=== PATIENT | male | born 1960 | race Caucasian/White ===

== ENCOUNTER 2017-01-11 08:30 | Emergency (ER) | payer BC ==
--- NOTE | 2017-01-11 09:26 | RAD ---
HISTORY: Left knee pain COMPARISONS: None VIEWS: 4, Frontal, lateral, axial, and oblique views of the left knee FINDINGS: BONE DENSITY: Normal. BONES: There is no displaced fracture. 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 There is a small suprapatellar joint effusion. ALIGNMENT: There is no dislocation. SOFT TISSUES: Unremarkable. OTHER FINDINGS: None. IMPRESSION: OSTEOARTHRITIS. SMALL EFFUSION. NO ACUTE OSSEOUS INJURY. IF SYMPTOMS PERSIST, RECOMMEND REPEAT IMAGING.
--- NOTE | 2017-01-11 09:44 | UC ---
Leslie, DoctorSuzan, scribed for Leonor Chiu MD on 01/11/17 at 0905 . Knee Pain HPI - HPI Summary HPI Summary: 56 year old male arrived to [facility] c/o left knee pain beginning yesterday at 1730. His pain is exacerbated with weight bearing and full extension, and he describes his pain as "lightning" that shoots across the top of the knee. He reports that he felt "something strange" behind his left knee after rock climbing yesterday morning, but did not notice any other symptoms until 1730 after his left knee "gave out" during a fitness class. He describes falling twice within a few minutes, and was unable to bear weight on the left side following the second fall. His symptoms were resolved slightly after application of ice (last night) and Aleve (this morning); he is now able to walk normally. He has a PMHx of Mann's Cyst and arthritis (dx two years ago) in the left knee. He reports that his arthritis typically "flares up in the cold ," but his pain today is significantly increased from baseline. He also has PMHx of HTN for which he takes medication; he regularly sees Dr. Cuadra (PCP). - History of Current Complaint Chief Complaint: UCLowerExtremity Stated Complaint: KNEE INJURY Hx Obtained From: Patient Onset/Duration: Gradual Onset Severity Initially: Moderate Severity Currently: Moderate Pain Intensity: 1 - 1/10 now, 9/10 when standing Pain Scale Used: 0-10 Numeric Character: Aching Aggravating Factor(s): Movement, Weight Bearing, Prolonged Standing Alleviating Factor(s): Cold - Ice, OTC Meds - Aleve Associated Signs And Symptoms: Positive: Swelling Able to Bear Weight: Yes - now able to bear weight, was not able to bear weight last night - Risk Factors Septic Arthritis Risk Factor: Negative Gout Risk Factor: Negative - Allergies/Home Medications Allergies/Adverse Reactions: Allergies Allergy/AdvReac Type Severity Reaction Status Date / Time Sulfa Drugs Allergy Mild Rash Verified 06/19/16 06:59 Prednisone Allergy Agitation Verified 01/11/17 08:38 Home Medications: Home Medications Cholesterol Med 1 tab PO DAILY 01/11/17 [History] Vitamin B Complex CAP* [B Complex CAP*] 1 01/11/17 [History] PMH/Surg Hx/FS Hx/Imm Hx Endocrine History Of: Denies: Diabetes, Thyroid Disease Cardiovascular History Of: Reports: Hypertension - on meds Denies: Cardiac Disorders, Pacemaker/ICD Respiratory History Of: Denies: COPD, Asthma GI/ History Of: Denies: Ulcer - Surgical History Surgical History: Yes Surgery Procedure, Year, and Place: hernia - Family History Known Family History: Positive: Other - no FHx of malignant hyperthermia, adverse reaction to anesthesia - Social History Occupation: Employed Full-time Alcohol Use: Daily Alcohol Amount: 4 mixers/day Substance Use Type: Marijuana Substance Use Comment - Amount & Last Used: daily Smoking Status (MU): Never Smoked Tobacco Review of Systems Constitutional: Other - no fever Musculoskeletal: Arthralgia - left knee, Edema - left knee, Other: - point tenderness medial supraptellar All Other Systems Reviewed And Are Negative: Yes Physical Exam Triage Information Reviewed: Yes Appearance: Well-Appearing, Well-Nourished, Pain Distress Vital Signs: Initial Vital Signs Temp 98.0 F 01/11/17 08:40 Pulse 82 01/11/17 08:40 Resp 18 01/11/17 08:40 BP 172/102 01/11/17 08:40 Pulse Ox 98 01/11/17 08:40 Elevated BP noted, decreased on repeat Vital Signs Reviewed: Yes Eyes: Positive: Conjunctiva Clear ENT: Positive: Normal ENT inspection Neck: Positive: Supple Respiratory: Positive: Lungs clear, Normal breath sounds, No respiratory distress Cardiovascular: Positive: RRR, No Murmur, Pulses Normal, Brisk Capillary Refill Abdomen Description: Positive: Nontender, Soft. Negative: Splenomegaly Musculoskeletal: Positive: Edema @ - left knee, Other: - Maximum tenderness superior medially (left knee). Ligaments stable with stress. No Mann's cyst palpated. Medial left ankle soreness, no bony tenderness, no swelling of ankle. Neurological: Positive: Alert, Muscle Tone Normal Psychological Exam: Normal Skin Exam: Normal Diagnostics - Radiology Knee X-Ray Radiology Interpretation Completed By: Radiologist - IMPRESSION: OSTEOARTHRITIS. SMALL EFFUSION. NO ACUTE OSSEOUS INJURY. IF SYMPTOMS PERSIST, RECOMMEND REPEAT IMAGING. Re-Evaluation - Re-Evaluation First Eval Re-Evaluation Time: 09:33 Change: Unchanged Comment: 09:33 - Discussed X-Ray results with pt. Knee Pain Course/Dx - Course Course Of Treatment: Pt advised about elevated blood pressure and to have definite follow up in 2 days. Advised non weight bearing and to use crutches and knee immobilizer until seen by orthopedics. - Differential Dx/Diagnosis Differential Diagnosis/HQI/PQRI: Fracture (Closed), Internal Derangement Of Knee , Sprain, Strain Provider Diagnoses: 1) Blood pressure under poor control. 2) Left knee effusion and pain Discharge - Discharge Plan Condition: Stable Disposition: HOME Patient Education Materials: Knee Sprain (ED), Crutch Instructions (ED) Forms: *Gen. Provider Communication, *Work Release Referrals: Vick Tena MD [Medical Doctor] - 3 Days Edgardo Cuadra MD [Primary Care Provider] - 2 Days Additional Instructions: Please follow up with Dr. Cuadra about your elevated blood pressure in 2 days. Follow up with orthopedics in 3-5 days. Use the knee immobilizer and crutches until seen by orthopedics. Return to urgent care if any new or worsening symptoms. The documentation as recorded by the Doctor junior Tahera accurately reflects the service I personally performed and the decisions made by , Leonor Chiu MD.
[2017-01-11 09:57] VITALS: BP 163/95
== END 2017-01-11 09:58 | disposition home or self-care (01) ==
LOC: UCEAST 08:30
DX: M25.562 Pain in left knee (principal); M25.462 Effusion, left knee; M17.12 Unilateral primary osteoarthritis, left knee; I10 Essential (primary) hypertension; Z88.2 Allergy status to sulfonamides; Z88.8 Allergy status to other drugs, medicaments and biological substances; F12.90 Cannabis use, unspecified, uncomplicated
CPT/HCPCS: 99213; G0463

== ENCOUNTER 2017-03-13 08:11 | Emergency (ER) | payer BC ==
[2017-03-13 09:12] VITALS: BP 130/90
--- NOTE | 2017-03-13 13:58 | UC ---
Gus eNlson Claudia, scribed for Ana Ballard MD on 03/13/17 at 0854 . General HPI - HPI Summary HPI Summary: 56 year old male presents to the [facility] with cough and chest pain due to the cough. Pt states that the Sx gradual began about 1 week ago progressively worsening this am. Pt states that he started taking Claratin with little to no relief for the past 5 days. Pt states that the congestion has worsened and is causing the productive cough which is irritating his chest. Pt denies any alleviating factors but notes that different sleeping positions aggravate his Sx more so than others. Pt denies any other associated Sx like reported fever and nausea. No hemoptysis. Some nausea with cough. No rash. - History of Current Complaint Chief Complaint: UCRespiratory Stated Complaint: COUGH Time Seen by Provider: 03/13/17 08:44 Hx Obtained From: Patient Onset/Duration: Gradual Onset, Lasting Weeks, Still Present Associated Signs & Symptoms: Positive: Cough, Chest Pain - due to the cough. Negative: Fever, Nausea - Allergy/Home Medications Allergies/Adverse Reactions: Allergies Allergy/AdvReac Type Severity Reaction Status Date / Time Sulfa Drugs Allergy Mild Rash Verified 03/13/17 08:25 Prednisone Allergy Agitation Verified 03/13/17 08:25 Home Medications: Home Medications Aspirin [Aspirin 81 MG TAB] 1 tab PO DAILY 03/13/17 [History Confirmed 03/13/17] Loratadine [Claritin 10 MG CAP] 1 tab PO DAILY PRN 03/13/17 [History Confirmed 03/13/17] PMH/Surg Hx/FS Hx/Imm Hx Previously Healthy: Yes Endocrine History Of: Denies: Diabetes, Thyroid Disease Cardiovascular History Of: Reports: Hypertension - on meds Denies: Cardiac Disorders, Pacemaker/ICD Respiratory History Of: Denies: COPD, Asthma GI/ History Of: Denies: Ulcer, Renal Disease - Surgical History Surgical History: Yes Surgery Procedure, Year, and Place: umbilical hernia repair - Family History Known Family History: Positive: Other - no FHx of malignant hyperthermia, adverse reaction to anesthesia - Social History Occupation: Employed Full-time Alcohol Use: Daily Alcohol Amount: 4 mixers/day Substance Use Type: Marijuana Substance Use Comment - Amount & Last Used: daily Smoking Status (MU): Never Smoked Tobacco Review of Systems Constitutional: Negative - NO REPORTED FEEVR Skin: Negative Eyes: Negative ENT: Negative Respiratory: Cough Cardiovascular: Negative Gastrointestinal: Other - no nausea Genitourinary: Negative Motor: Negative Neurovascular: Negative Musculoskeletal: Negative Neurological: Negative Psychological: Negative All Other Systems Reviewed And Are Negative: Yes Physical Exam Triage Information Reviewed: Yes Vital Signs: Initial Vital Signs Temp 97.3 F 03/13/17 08:18 Pulse 89 03/13/17 08:18 Resp 18 03/13/17 08:18 BP 160/111 03/13/17 08:18 Pulse Ox 100 03/13/17 08:18 - Additional Comments * Appearance: Well-Nourished * Eye Exam: Normal * ENT Exam: Normal UVULA EDEMATOUS NO STRIDOR * Neck: Normal, No adenopathy appreciated * Respiratory Exam: Normal, no dyspnea, no tachypnea, normal respiratory rate, RHONCHOROUS COUGH WITH EXPIRATORY WHEEZES * Chest non-tender, Lungs clear, Normal breath sounds, No respiratory distress, No accessory muscle use * Cardiovascular Exam: Normal * Cardiovascular: Heart rate regular, good general skin color, good capillary refill * Only if she checked: RRR, No Murmur, Pulses Normal - sitting up. heart rate correlates w left radial pulse (if relevant), Brisk Capillary Refill * Abdominal Exam: Normal * Abdomen Description: Nontender, No Organomegaly, Soft * Bowel Sounds: Present * Musculoskeletal Exam: Normal * Musculoskeletal: Strength Intact * Neurological Exam: Normal: nonfocal, grossly intact * Psychological Exam: Normal: conversing easily and appropriately * Skin Exam: Normal: no visible or r * eported rash Course/Dx - Course Course Of Treatment: No new problems in CCC. BP reviewed w pt, and need for f/ u pcp. Rx as below. Questions answered to the best of my ability. - Differential Dx - Multi-Symptom Provider Diagnoses: Acute bronchitis with wheezing. HTN Discharge - Discharge Plan Condition: Stable Disposition: HOME Prescriptions: Azithromyxin JELANI (NF) [Z-Jelani (Zithromax) 250 mg tabs #6] 2 tab PO .TODAY, THEN 1 DAILY #6 tab Levalbuterol HFA INHALER* [Xopenex Hfa Inhaler*] 1 puff INH Q4H PRN #1 mdi PRN Reason: Shortness Of Breath Patient Education Materials: Acute Bronchitis (ED), Chronic Hypertension (ED) Forms: *Work Release Referrals: Edgardo Cuadra MD [Primary Care Provider] - Additional Instructions: With the antibiotics be sure to eat 1 yogurt/probiotic for the duration of the antibiotics and 7 days afterwards. Follow up with your primary care physician in the next 1-2 weeks. Blood pressure recheck at that time. Avoid ginko b. for the next 10 days if possible. Seek medical attention sooner for worse or new problems in the meantime. The documentation as recorded by the Gus junior Claudia accurately reflects the service I personally performed and the decisions made by me, Ana Ballard MD.
== END 2017-03-13 09:24 | disposition home or self-care (01) ==
LOC: UCEAST 08:11
DX: J20.9 Acute bronchitis, unspecified (principal); R06.2 Wheezing; I10 Essential (primary) hypertension
CPT/HCPCS: 99212; G0463

== ENCOUNTER 2017-05-31 07:12 | Emergency (ER) | payer BC ==
[2017-05-31 07:39] VITALS: BP 150/87
--- NOTE | 2017-05-31 09:48 | UC ---
Pelon Nelson Alfonso, scribed for Leonor Waggoner MD on 05/31/17 at 0850 . Back Pain HPI - HPI Summary HPI Summary: This patient is a 56 year old M presenting to [facility] with a chief complaint of right flank and right low back pain since 0200 this morning. The CC is described as dull, aching, and throbbing pain. The patient rates the pain 6/10 in severity. The pain awoke him from sleep. Symptoms aggravated by nothing and alleviated by position. Patient also reports fingertip numbness, right shoulder discomfort, and right sided CP. Patient denies N/V. He denies recent heavy lifting. He denies PMHx of kidney stones. Patients medications reviewed this visit. Allergies noted. HTN and poor control noted. - History of Current Complaint Chief Complaint: UCBackPain Stated Complaint: BACK PAIN Time Seen by Provider: 05/31/17 08:06 Hx Obtained From: Patient Onset/Duration: Sudden Onset, Lasting Hours - 0200 this morning, Still Present Timing: Constant, Lasting Hours - 0200 this morning Severity Initially: Moderate Severity Currently: Moderate Pain Intensity: 6 Pain Scale Used: 0-10 Numeric Back Pain: Is Discrete @ - Right low back/right flank Character: Dull, Aching, Throbbing Aggravating: Nothing Alleviating: Position Associated Signs And Symptoms: Positive: Other - Patient reports fingertip numbness, right shoulder discomfort, and right sided CP, right upper quadrant discomfort. Patient denies N/V. - Risk Factors AAA Risk Factors: Negative TAD Risk Factors: Negative Cauda Equina Risk Factors: Negative Epidural Abscess Risk Factors: Negative - Allergies/Home Medications Allergies/Adverse Reactions: Allergies Allergy/AdvReac Type Severity Reaction Status Date / Time Sulfa Drugs Allergy Mild Rash Verified 05/31/17 07:20 Prednisone Allergy Agitation Verified 05/31/17 07:20 PMH/Surg Hx/FS Hx/Imm Hx Other Endocrine History: HTN Cardiovascular History: Hypertension Other GI/ History: Negative kidney stones - Surgical History Surgical History: Yes Surgery Procedure, Year, and Place: umbilical hernia repair - Family History Known Family History: Positive: Other - no FHx of malignant hyperthermia, adverse reaction to anesthesia Family History: CHF in father. Pheochromocytoma in sister. - Social History Alcohol Use: Daily Alcohol Amount: 4 mixers/day Substance Use Type: Marijuana Substance Use Comment - Amount & Last Used: daily Smoking Status (MU): Never Smoked Tobacco Review of Systems Respiratory: Negative Cardiovascular: Chest Pain - Right sided Gastrointestinal: Abdominal Pain - Right flank, right upper quadrant, Other - Negative N/V Genitourinary: Negative Musculoskeletal: Other: - Positive right low back pain and right shoulder discomfort. Neurological: Numbness - Fingertips All Other Systems Reviewed And Are Negative: Yes Physical Exam Triage Information Reviewed: Yes Appearance: Well-Appearing, No Pain Distress, Pain Distress Vital Signs: Initial Vital Signs Temp 98 F 05/31/17 07:21 Pulse 91 05/31/17 07:21 Resp 16 05/31/17 07:21 BP 150/87 05/31/17 07:21 Pulse Ox 100 05/31/17 07:21 Vital Signs Reviewed: Yes Eyes: Positive: Conjunctiva Clear ENT: Positive: Normal ENT inspection. Negative: Muffled/hoarse voice Neck: Positive: Supple Respiratory: Positive: Lungs clear, Normal breath sounds, No respiratory distress, No accessory muscle use Cardiovascular: Positive: RRR, No Murmur, Pulses Normal, Brisk Capillary Refill Abdomen Description: Positive: No Organomegaly, Soft, CVA Tenderness (R), Other : - Right CVA tenderness which is reproducible. Minimal epigastric tenderness and RUQ tenderness.. Negative: Nontender, Bruit, Distended, Guarding, Hepatomegaly, McBurney's Point Tenderness, Peritoneal Signs, Pulsatile Mass, Splenomegaly Bowel Sounds: Positive: Present Musculoskeletal: Positive: Strength Intact, ROM Intact Neurological: Positive: Alert, Muscle Tone Normal Psychological Exam: Normal Skin Exam: Normal Diagnostics - EKG Cardiac Rate: NL - BPM 76 Cardiac Rhythm: Sinus: Normal - At 0834 Normal QTc, Normal axis, normal EKG Back Pain Course/Dx - Course Course Of Treatment: This patient is a 56 year old M presenting to [facility] with a chief complaint of right flank and right low back pain since 0200 this morning. Patient reports fingertip numbness, right shoulder discomfort, and right sided CP and right upper quadrant discomfort. Patient denies N/V. He denies recent heavy lifting. He denies PMHx of kidney stones. Patients medications reviewed this visit. Allergies noted. HTN and poor control noted. With pt's multiple system complaint and negative urine, advise pt to go to ED for further evaluation and treatment. DR WAGGONER RECOMMENDS THAT YOU GO DIRECTLY TO THE EMERGENCY DEPARTMENT NOW. DO NOT EAT OR DRINK UNTIL THE ER ADVISES YOU THAT YOU MAY EAT. ALSO PLEASE FOLLOW UP WITH YOUR PRIMARY CARE PROVIDER WITHIN TWO DAYS FOR HYPERTENSIVE BLOOD PRESSURE NOTED TODAY OF 150/87. Patient is agreeable with this plan. - Differential Dx/Diagnosis Differential Diagnosis/HQI/PQRI: Renal Colic, Strain, Sprain, Other - cholecystitis Provider Diagnoses: Right flank pain, right chest pain, HTN and poor control. Discharge - Discharge Plan Condition: Stable Disposition: OTHER Discharge Disposition Comment: DR WAGGONER RECOMMENDS THAT YOU GO DIRECTLY TO THE EMERGENCY DEPARTMENT NOW. Patient Education Materials: Flank Pain (ED) Referrals: Edgardo Cuadra MD [Primary Care Provider] - 2 Days Additional Instructions: DR WAGGONER RECOMMENDS THAT YOU GO DIRECTLY TO THE EMERGENCY DEPARTMENT NOW. DO NOT EAT OR DRINK UNTIL THE ER ADVISES YOU THAT YOU MAY EAT. ALSO PLEASE FOLLOW UP WITH YOUR PRIMARY CARE PROVIDER WITHIN TWO DAYS FOR HYPERTENSIVE BLOOD PRESSURE NOTED TODAY OF 150/87. The documentation as recorded by the Pelon junior Alfonso accurately reflects the service I personally performed and the decisions made by , Leonor Waggoner MD.
== END 2017-05-31 08:50 ==
LOC: UCEAST 07:12
DX: R10.31 Right lower quadrant pain (principal); R07.9 Chest pain, unspecified; I10 Essential (primary) hypertension; F12.90 Cannabis use, unspecified, uncomplicated
CPT/HCPCS: 81003; 93005; 99211; G0463

== ENCOUNTER 2017-05-31 09:21 | Emergency (ER) | payer BC ==
[2017-05-31 11:14] LABS: Hematocrit 39 % (42-52); Hemoglobin 12.9 g/dl (14.0-18.0); Mean Corpuscular HGB Conc 33 g/dl (31-36); Mean Corpuscular Hemoglobin 31 pg (27-31); Mean Corpuscular Volume 93 fL (80-94); Mean Platelet Volume 8 um3 (7.4-10.4); Red Blood Count 4.19 10^6/ul (4.0-5.4); Red Cell Distribution Width 13 % (10.5-15); White Blood Count 5.5 10^3/ul (3.5-10.8)
--- NOTE | 2017-05-31 11:14 | RAD ---
Indication: RIGHT upper quadrant pain. Comparison: October 16, [address] Technique: RIGHT upper quadrant ultrasound. Report: Appropriate direction flow documented in the portal and hepatic veins. 15.4 cm liver is increased in echogenicity. Negative for focal hepatic lesions. Negative for intrahepatic biliary dilatation. 1.6 mm common bile duct. Adequately distended gallbladder with normal 2.3 mm wall is without pathologic finding. Negative for sonographic Santana's sign. The pancreatic tail is partially obscured due to bowel gas with the visualized pancreas unremarkable. Negative for ascites. 10.7 cm RIGHT kidney is unremarkable. IMPRESSION: 1. No evidence for gallbladder pathology. 2. Hepatic steatosis.
[2017-05-31 11:29] LABS: Albumin 4.5 g/dL (3.2-5.2); C Reactive Protein 2.29 mg/L (< 5.00); Calcium 9.3 mg/dL (8.6-10.3); EGFR African American 111.2 (>60); EGFR Non-African American 86.5 (>60); Globulin 2.4 g/dL (2-4); Potassium 3.5 mmol/L (3.5-5.0); Total Bilirubin 0.8 mg/dL (0.2-1.0); Total Protein 6.9 g/dL (6.4-8.9)
[2017-05-31 11:43] LABS: Urine Bilirubin Negative (Negative); Urine Glucose Negative (Negative); Urine Nitrite Negative (Negative)
--- NOTE | 2017-05-31 13:34 | RAD ---
CLINICAL HISTORY: Right flank pain COMPARISON: October 16, 2014 TECHNIQUE: Multiple contiguous axial CT scans were obtained of the abdomen and pelvis, without intravenous contrast enhancement. Coronal and sagittal multiplanar reformations are submitted for review. Oral contrast was not administered. FINDINGS: The study is limited by the lack of intravenous contrast. This limits evaluation of the solid organs and vasculature. LUNG BASES: The lung bases are clear. LIVER: The liver is normal in shape, size, contour, and attenuation. BILE DUCTS: There is no intrahepatic or extrahepatic biliary dilatation. GALLBLADDER: The gallbladder is normal, without pericholecystic inflammatory change. PANCREAS: The pancreas is normal, without mass or ductal dilatation. SPLEEN: Normal in size and appearance. UPPER GI TRACT: Evaluation of the gastrointestinal tract is limited by incomplete gastric distention. The upper GI tract is unremarkable. SMALL BOWEL AND MESENTERY: The small bowel is normal in contour, course, and caliber. There is no obstruction or dilatation. COLON: The colon is normal in contour, course, caliber. There is no pericolonic inflammatory change. There is a tubular, vermiform, hollow viscus that is blind ending, and originates from the cecum, consistent with a normal appendix. There is no periappendiceal inflammatory change. This is best seen on images [id number] ADRENALS: Normal bilaterally. KIDNEYS: The kidneys are normal in shape, size, contour, and axis. There is no hydronephrosis or nephrolithiasis. BLADDER: The bladder is smooth in contour. PELVIC ORGANS: The prostate gland is normal. The seminal vesicles are symmetric. AORTA: The aorta is normal. IVC: Unremarkable LYMPH NODES: There is no lymphadenopathy by size criteria. ABDOMINAL WALL: There is no evidence for abdominal wall hernia. BONES AND SOFT TISSUES: Degenerative changes noted of the spine OTHER: None IMPRESSION: NO HYDRONEPHROSIS OR NEPHROLITHIASIS.
[2017-05-31 14:17] VITALS: BP 164/104
--- NOTE | 2017-05-31 19:02 | ED ---
Akiko Nelson Thomas, scribed for Marcus Pulido MD on 05/31/17 at 1004 . Abdominal Pain/Male - HPI Summary HPI Summary: The pt is a 56 y/o M referred from [facility] and presenting to the ED c/o R-sided flank pain that began today at 02:00. He pain also radiates to his chest and lower abd. When he straightens his torso, his chest pain is worsened. He describes his flank pain as an ache and his CP as tightness. The pain is rated 5/10. The pain is aggravated and alleviated by nothing. Pt denies N/V. PMHx: HTN, hiatal hernia. PSHx: umbilical hernia repair. SHx: daily alcohol, marijuana use, no smoking. He has had pain similar to this but on the L side. He denies a Hx of kidney stones. - History of Current Complaint Chief Complaint: EDFlankPain Stated Complaint: CHEST PAIN COMMING FROM [facility] Time Seen by Provider: 05/31/17 09:31 Hx Obtained From: Patient Onset/Duration: Sudden Onset, Lasting Hours - began today at 02:00, Still Present Timing: Constant Severity Currently: Moderate Pain Intensity: 5 Pain Scale Used: 0-10 Numeric Location: Flank - R side Radiates: Yes Radiates to: Chest, Other - lower abd Character: Other: - aching (flank), tightness (chest Aggravating Factor(s): Nothing Alleviating Factor(s): Nothing Associated Signs And Symptoms: Negative: Fever, Nausea, Vomiting - Allergies/Home Medications Allergies/Adverse Reactions: Allergies Allergy/AdvReac Type Severity Reaction Status Date / Time Sulfa Drugs Allergy Mild Rash Verified 05/31/17 07:20 Prednisone Allergy Agitation Verified 05/31/17 07:20 Home Medications: Home Medications Levalbuterol HFA INHALER* [Xopenex Hfa Inhaler*] 1 puff INH Q6H PRN 05/31/17 [ History Confirmed 05/31/17] Losartan TAB* [Cozaar TAB*] 50 mg PO DAILY 05/31/17 [History Confirmed 05/31/17] Rosuvastatin (NF) [Crestor (NF)] 5 mg PO DAILY 05/31/17 [History Confirmed 05/31] PMH/Surg Hx/FS Hx/Imm Hx Previously Healthy: No Endocrine/Hematology History: Denies: Hx Diabetes, Hx Thyroid Disease Cardiovascular History: Reports: Hx Hypertension - on meds Denies: Hx Pacemaker/ICD Respiratory History: Denies: Hx Asthma, Hx Chronic Obstructive Pulmonary Disease (COPD) GI History: Reports: Hx Hiatal Hernia Denies: Hx Ulcer History: Denies: Hx Renal Disease Musculoskeletal History: Reports: Hx Arthritis - LEFT KNEE - IMPROVED, Hx Bursitis - LEFT ELBOW JOINT Sensory History: Denies: Hx Contacts or Glasses, Hx Hearing Aid Opthamlomology History: Denies: Hx Contacts or Glasses Psychiatric History: Denies: Hx Panic Disorder - Surgical History Surgery Procedure, Year, and Place: umbilical hernia repair Infectious Disease History: Reports: Hx Shingles Denies: Hx Hepatitis, Hx Human Immunodeficiency Virus (HIV), History Other Infectious Disease, Traveled Outside the [place] in Last 30 Days - Family History Known Family History: Positive: Other - no FHx of malignant hyperthermia, adverse reaction to anesthesia - Social History Alcohol Use: Daily Alcohol Amount: 4 mixers/day Substance Use Type: Reports: Marijuana Substance Use Comment - Amount & Last Used: daily Smoking Status (MU): Never Smoked Tobacco Review of Systems Negative: Fever Negative: Vomiting, Nausea Positive: flank pain - R side, ache in quality, radiates to lower abd and chest (where it is a tightness), 5/10 in severity All Other Systems Reviewed And Are Negative: Yes Physical Exam - Summary Physical Exam Summary: VITAL SIGNS: Reviewed. GENERAL: Patient is a well-developed and nourished male who is lying comfortable in the stretcher. ~Patient is not in any acute respiratory distress. HEAD AND FACE: Normocephalic and atraumatic. EYES: PERRLA, EOMI x 2, No injected conjunctiva. EARS: Hearing grossly intact. Ear canals and tympanic membranes are WNL. MOUTH: Oropharynx within normal limits. NECK: Supple, trachea is midline, no adenopathy, no JVD. CHEST: Symmetric, no tenderness at palpation LUNGS: Clear to auscultation bilaterally. No wheezing or crackles. CVS: RRR, S1 and S2 present, no murmurs or gallops appreciated. ABDOMEN: RUQ tenderness. Epigastric tenderness. Positive for flank pain. No CVA tenderness. Soft, no signs of distention. Positive bowel sounds. No rebound no guarding, and no masses palpated. No abdominal bruit or pulsations. EXTREMITIES: FROM in all major joints, no edema, no cyanosis or clubbing. NEURO: Alert and oriented x 3. No acute neurological deficits. Speech is normal. SKIN: Dry and warm Triage Information Reviewed: Yes Vital Signs On Initial Exam: Initial Vitals Temp Pulse Resp BP Pulse Ox 98.3 F 76 19 161/99 99 05/31/17 09:25 05/31/17 09:25 05/31/17 09:25 05/31/17 09:25 05/31/17 09:25 Vital Signs Reviewed: Yes Diagnostics - Vital Signs Vital Signs Temp Pulse Resp BP Pulse Ox 05/31/17 09:25 98.3 F 76 19 161/99 99 - Laboratory Lab Results: Lab Results 05/31/17 05/31/17 05/31/17 Range/Units 10:50 10:50 10:50 WBC 5.5 (3.5-10.8) 10^3/ul RBC 4.19 (4.0-5.4) 10^6/ul Hgb 12.9 L (14.0-18.0) g/dl Hct 39 L (42-52) % MCV 93 (80-94) fL MCH 31 (27-31) pg MCHC 33 (31-36) g/dl RDW 13 (10.5-15) % Plt Count 293 (150-450) 10^3/ul MPV 8 (7.4-10.4) um3 Neut % (Auto) 62.4 (38-83) % Lymph % (Auto) 25.0 (25-47) % Reeves % (Auto) 8.8 (1-9) % Eos % (Auto) 3.0 (0-6) % Baso % (Auto) 0.8 (0-2) % Absolute Neuts (auto) 3.4 (1.5-7.7) 10^3/ul Absolute Lymphs (auto) 1.4 (1.0-4.8) 10^3/ul Absolute Monos (auto) 0.5 (0-0.8) 10^3/ul Absolute Eos (auto) 0.2 (0-0.6) 10^3/ul Absolute Basos (auto) 0 (0-0.2) 10^3/ul Absolute Nucleated RBC 0 10^3/ul Nucleated RBC % 0 Sodium 139 (133-145) mmol/L Potassium 3.5 (3.5-5.0) mmol/L Chloride 103 (101-111) mmol/L Carbon Dioxide 29 (22-32) mmol/L Anion Gap 7 (2-11) mmol/L BUN 20 (6-24) mg/dL Creatinine 0.91 (0.67-1.17) mg/dL Est GFR ( Amer) 111.2 (>60) Est GFR (Non-Af Amer) 86.5 (>60) BUN/Creatinine Ratio 22.0 H (8-20) Glucose 107 H (70-100) mg/dL Lactic Acid 0.9 (0.5-2.0) mmol/L Calcium 9.3 (8.6-10.3) mg/dL Total Bilirubin 0.80 (0.2-1.0) mg/dL AST 20 (13-39) U/L ALT 27 (7-52) U/L Alkaline Phosphatase 55 (34-104) U/L C-Reactive Protein 2.29 (< 5.00) mg/L Total Protein 6.9 (6.4-8.9) g/dL Albumin 4.5 (3.2-5.2) g/dL Globulin 2.4 (2-4) g/dL Albumin/Globulin Ratio 1.9 (1-3) Amylase 20 L (29-103) U/L Lipase 21 (11.0-82.0) U/L Urine Color Urine Appearance Urine pH (5-9) Ur Specific [place] (1.010-1.030) Urine Protein (Negative) Urine Ketones (Negative) Urine Blood (Negative) Urine Nitrate (Negative) Urine Bilirubin (Negative) Urine Urobilinogen (Negative) Ur Leukocyte Esterase (Negative) Urine Glucose (Negative) 05/31/17 Range/Units 11:28 WBC (3.5-10.8) 10^3/ul RBC (4.0-5.4) 10^6/ul Hgb (14.0-18.0) g/dl Hct (42-52) % MCV (80-94) fL MCH (27-31) pg MCHC (31-36) g/dl RDW (10.5-15) % Plt Count (150-450) 10^3/ul MPV (7.4-10.4) um3 Neut % (Auto) (38-83) % Lymph % (Auto) (25-47) % Reeves % (Auto) (1-9) % Eos % (Auto) (0-6) % Baso % (Auto) (0-2) % Absolute Neuts (auto) (1.5-7.7) 10^3/ul Absolute Lymphs (auto) (1.0-4.8) 10^3/ul Absolute Monos (auto) (0-0.8) 10^3/ul Absolute Eos (auto) (0-0.6) 10^3/ul Absolute Basos (auto) (0-0.2) 10^3/ul Absolute Nucleated RBC 10^3/ul Nucleated RBC % Sodium (133-145) mmol/L Potassium (3.5-5.0) mmol/L Chloride (101-111) mmol/L Carbon Dioxide (22-32) mmol/L Anion Gap (2-11) mmol/L BUN (6-24) mg/dL Creatinine (0.67-1.17) mg/dL Est GFR ( Amer) (>60) Est GFR (Non-Af Amer) (>60) BUN/Creatinine Ratio (8-20) Glucose (70-100) mg/dL Lactic Acid (0.5-2.0) mmol/L Calcium (8.6-10.3) mg/dL Total Bilirubin (0.2-1.0) mg/dL AST (13-39) U/L ALT (7-52) U/L Alkaline Phosphatase (34-104) U/L C-Reactive Protein (< 5.00) mg/L Total Protein (6.4-8.9) g/dL Albumin (3.2-5.2) g/dL Globulin (2-4) g/dL Albumin/Globulin Ratio (1-3) Amylase (29-103) U/L Lipase (11.0-82.0) U/L Urine Color Yellow Urine Appearance Clear Urine pH 5.0 (5-9) Ur Specific [place] 1.017 (1.010-1.030) Urine Protein Negative (Negative) Urine Ketones Negative (Negative) Urine Blood Negative (Negative) Urine Nitrate Negative (Negative) Urine Bilirubin Negative (Negative) Urine Urobilinogen Negative (Negative) Ur Leukocyte Esterase Negative (Negative) Urine Glucose Negative (Negative) Result Diagrams: 05/31/17 10:50 05/31/17 10:50 Lab Statement: Any lab studies that have been ordered have been reviewed, and results considered in the medical decision making process. - CT CT Abd/Pel CT Interpretation: No Acute Changes - no hydronephrosis or nephrolithiasis. CT Interpretation Completed By: Radiologist - Additional Comments Diagnostic Additional Comments: US Gallbladder. Interpreted by radiologist. Impression: 1. No evidence for gallbladder pathology. 2. Hepatic steatosis. Abdominal Pain Fem Course/Dx - Course Assessment/Plan: P/E reverals no hernias, no testicular tenderness. In the ED course an IV access was obtained. Patient was placed in a aluminum welder. Patient was started with IV fluids. He was given toradol for pain. Labs without any significant abnormality. UA is negative. EKG shows a NSR w/o ST elevations. RUQ U/S: Negative exam. Therefore, I decided to do an abdominal and pelvic CT to R/o Renal stones. Abdominal and pelvic CT is negative for an acute intra-abdominal pathology. Patients symptoms have improved. He is reports no complaints. I believe symptoms are secondary to back pain. He will be discharged home with F/U of PMD>. I discussed all the findings and test results with the patient. Patient was instructed to return to the emergency room immediately if any of the symptoms return or worsens. Plan of care was discussed with the patient and understands and agrees. All questions were answered at patient satisfaction. There were no further complaints or concerns. Lung exam before discharge: CTA B/L. Good air exchange. No wheezing or crackles heard. CVS: S1 and S2 present. No murmurs appreciated. Patient is alert and oriented x 3. Patient is hemodynamically stable. Patient will be discharged home with follow up PCP in the next 2-3 days - Diagnoses Differential Diagnosis/HQI/PQRI: Appendicitis, Bowel Obstruction, Constipation, Diverticulitis, Gall Bladder Disease, Pancreatitis, Renal Colic, Ureteral Stone Provider Diagnoses: Abdominal pain, Flank pain Discharge - Discharge Plan Condition: Stable Disposition: HOME Prescriptions: Naproxen TAB* [Naprosyn 250 mg TAB*] 500 mg PO Q8H PRN #30 tab PRN Reason: Pain Patient Education Materials: Abdominal Pain (ED), Flank Pain (ED) Referrals: Edgardo Cuadra MD [Primary Care Provider] - 3 Days The documentation as recorded by the Akiko junior Thomas accurately reflects the service I personally performed and the decisions made by me, Marcus Pulido MD.
== END 2017-05-31 14:16 | disposition home or self-care (01) ==
LOC: ED 09:21
DX: R10.84 Generalized abdominal pain (principal)
CPT/HCPCS: 36415; 74176; 76705; 80053; 81003; 82150; 83605; 83690; 85025; 86140; 93005; 99283

== ENCOUNTER 2018-01-19 12:07 | Emergency (ER) | payer BC ==
--- NOTE | 2018-01-19 13:05 | UC ---
Ear Complaint HPI - HPI Summary HPI Summary: States he has been experiencing a clogged right ear for the past 2 days and feels he is under water with decreased hearing. States he has history of sinus/ nasal congestion and he used a christy pot in the past. Only past history is that 3 days ago he went to a floating tank with epson salts. c/o baseline post nasal drip and he states he went to the tank to obtain relief. - History of Current Complaint Chief Complaint: UCEar Stated Complaint: EAR PLUGGED Time Seen by Provider: 01/19/18 12:41 Hx Obtained From: Patient Onset/Duration: Sudden Onset, Lasting Days Severity Initially: Mild Severity Currently: Mild Pain Intensity: 0 Aggravating Factors: Nothing Alleviating Factors: Nothing - Allergies/Home Medications Allergies/Adverse Reactions: Allergies Allergy/AdvReac Type Severity Reaction Status Date / Time prednisone Allergy Agitation Verified 01/19/18 12:23 Sulfa (Sulfonamide Allergy Rash Verified 01/19/18 12:23 Antibiotics) Home Medications: Home Medications Aspirin 81 mg PO DAILY 01/19/18 [History Confirmed 01/19/18] PMH/Surg Hx/FS Hx/Imm Hx Previously Healthy: Yes Cardiovascular History: Hypertension - Surgical History Surgical History: Yes Surgery Procedure, Year, and Place: umbilical hernia repair. knee arthroscopy - Family History Known Family History: Positive: Other - no FHx of malignant hyperthermia, adverse reaction to anesthesia - Social History Alcohol Use: Daily Alcohol Amount: 2-3 drinks Substance Use Type: Marijuana Substance Use Comment - Amount & Last Used: daily Smoking Status (MU): Never Smoked Tobacco Review of Systems Constitutional: Negative ENT: Ear Ache, Sinus Congestion All Other Systems Reviewed And Are Negative: Yes Physical Exam Triage Information Reviewed: Yes Vital Signs: Initial Vital Signs Temp 97.4 F 01/19/18 12:19 Pulse 75 01/19/18 12:19 Resp 16 01/19/18 12:19 BP 168/102 01/19/18 12:19 Pulse Ox 100 01/19/18 12:19 Vital Signs Reviewed: Yes Eyes: Positive: Conjunctiva Clear ENT: Positive: Pharynx normal, Nasal congestion, TMs normal, Uvula midline Neck: Positive: Supple, Nontender, No Lymphadenopathy Respiratory: Positive: Chest non-tender, Lungs clear, Normal breath sounds, No respiratory distress Cardiovascular: Positive: RRR, No Murmur, Pulses Normal, Brisk Capillary Refill Ear Complaint Course/Dx - Course Course Of Treatment: right middle ear effusion, history of nasal congestion, patient will use his christy pot and irrigate with normal saline solution. Instructed to use cody, claritin or zyrtec, usual duration of symptoms is 6- 12 weeks, follow up with PCP - Differential Dx/Diagnosis Provider Diagnoses: Eustachian tube dysfunction. Right middle ear effusion. HTN Discharge - Sign-Out/Discharge Documenting (check all that apply): Discharge - Discharge Plan Condition: Stable Disposition: HOME Patient Education Materials: Serous Otitis Media (ED), Chronic Hypertension (ED ) Referrals: Edgardo Cuadra MD [Primary Care Provider] - - Billing Disposition and Condition Condition: STABLE Disposition: HOME
[2018-01-19 13:13] VITALS: BP 140/93
== END 2018-01-19 13:16 | disposition home or self-care (01) ==
LOC: UCEAST 12:07
DX: H69.91 Unspecified Eustachian tube disorder, right ear (principal); H93.8X1 Other specified disorders of right ear; I10 Essential (primary) hypertension; Z88.2 Allergy status to sulfonamides; Z88.8 Allergy status to other drugs, medicaments and biological substances
CPT/HCPCS: 99211; G0463

== ENCOUNTER 2018-05-24 12:42 | Emergency (ER) | payer BC ==
[2018-05-24 13:01] VITALS: BP 135/75
--- NOTE | 2018-05-24 14:12 | UC ---
Skin Complaint HPI - HPI Summary HPI Summary: Patient is an otherwise healthy 57-year-old male without a history of diabetes presenting to the with a nonhealing ulcerative wound to the right lower extremity. The area is approximately 1.5 cm in diameter and 0.2 cm in depth. He sustained an injury several weeks ago and states the area continues to heal, however slowly. There is a small amount of erythematous area measuring 1 cm around the wound without warmth or pain. He has been soaking the leg daily in Epsom salt as well as attempting to debride blackened areas. - History of Current Complaint Chief Complaint: UCSkin Time Seen by Provider: 05/24/18 13:09 Stated Complaint: LAG LAC Hx Obtained From: Patient Onset/Duration: Lasting Weeks Skin Exposure Onset/Duration: Hours Ago Timing: Constant Onset Severity: Mild Pain Intensity: 0 Pain Scale Used: 0-10 Numeric Aggravating Factor(s): Nothing Alleviating Factor(s): Nothing Related History: Trauma - Allergy/Home Medications Allergies/Adverse Reactions: Allergies Allergy/AdvReac Type Severity Reaction Status Date / Time prednisone Allergy Agitation Verified 01/19/18 12:23 Sulfa (Sulfonamide Allergy Rash Verified 01/19/18 12:23 Antibiotics) Review of Systems Constitutional: Negative Skin: Other - 1.5 cm ulcer ENT: Negative Respiratory: Negative Motor: Negative Neurovascular: Negative Neurological: Negative Psychological: Negative Is Patient Immunocompromised?: No All Other Systems Reviewed And Are Negative: Yes - Anthony PMH/Surg Hx/FS Hx/Imm Hx Previously Healthy: Yes - Surgical History Surgical History: Yes Surgery Procedure, Year, and Place: umbilical hernia repair. knee arthroscopy - Family History Known Family History: Positive: Other - no FHx of malignant hyperthermia, adverse reaction to anesthesia - Social History Occupation: Employed Full-time Lives: With Family Alcohol Use: Daily Alcohol Amount: 2-3 drinks Substance Use Type: Marijuana Substance Use Comment - Amount & Last Used: daily Smoking Status (MU): Never Smoked Tobacco Physical Exam Triage Information Reviewed: Yes Appearance: Well-Appearing, No Pain Distress Vital Signs: Initial Vital Signs Temp 98 F 05/24/18 12:59 Pulse 79 05/24/18 12:59 Resp 16 05/24/18 12:59 BP 135/75 05/24/18 12:59 Pulse Ox 100 05/24/18 12:59 Vital Signs Reviewed: Yes Eye Exam: Normal Neck exam: Normal Neck: Positive: Supple Respiratory Exam: Normal Respiratory: Positive: Chest non-tender Musculoskeletal Exam: Normal Musculoskeletal: Positive: Strength Intact Psychological Exam: Normal Psychological: Positive: Normal Response To Family Skin: Positive: Other - 1.5cm ulcer Course/Dx - Course Course Of Treatment: On physical examination there is a 1.5 cm circular ulcerative lesion to the right lower extremities just superior to the right ankle with a 0.2 cm in depth ulcer with a small amount of blackened eschar. There does not appear to be infected, however there is a 1 cm circular erythematous non-warm, nonblanching area around the wound. No streaking identified. He is not a diabetic. This appears to be an ulcer which is a slow healing wound, however due to the erythematous area around the ulcer, he will be prescribed a short course of antibiotics and will no longer attempt to remove the dried blackened eschar or debride the wound. - Diagnoses Provider Diagnoses: Lower Leg Ulcer Discharge - Sign-Out/Discharge Documenting (check all that apply): Patient Departure - Discharge Plan Condition: Stable Disposition: HOME Prescriptions: Cephalexin CAP* [Keflex CAP*] 500 mg PO QID #28 cap MDD 4 Patient Education Materials: Acute Wound Care (ED) Referrals: Edgardo Cuadra MD [Primary Care Provider] - Additional Instructions: Topical antibiotic ointment twice daily to the area Keflex 4 times daily 7 days - Billing Disposition and Condition Condition: STABLE Disposition: Home
== END 2018-05-24 13:55 | disposition home or self-care (01) ==
LOC: UCEAST 12:42
DX: L97.919 Non-pressure chronic ulcer of unspecified part of right lower leg with unspecified severity (principal); Z88.2 Allergy status to sulfonamides; Z88.8 Allergy status to other drugs, medicaments and biological substances
CPT/HCPCS: 99212; G0463

== ENCOUNTER → 2019-02-28 21:21 | Emergency (ER) | payer BC ==
[~2019-02-28 21:21] MED LIST: Lidocaine 2% MPF* 2 ML VIAL ONE
--- NOTE | 2019-02-28 22:16 | ED ---
Syncope/Near Syncope - HPI Summary HPI Summary: Patient is a 58 y/o M presenting to ED via EMS after experiencing a finger laceration and subsequent syncopal episode. He states that he was taking out his trash tonight when he accidentally cut his left middle finger on a piece of ceramic dish that was in the trash. Patient was having this finger bandaged by his neighbor, began to feel "woozy" and experienced a witnessed syncopal episode. Patient states that he was "apparently" unresponsive for around two minutes and states that he does not recall the incident. At present, the patient is A&Ox3. However, the patient notes some alcohol consumption tonight and pain at lacerated finger. Patient denies Hx of similar Sx, states that he has never experienced a syncopal episode from looking at blood. PMHx of HTN for which the patient is on BP meds. He believes his last tetanus was within the last ten years. PMHx of asthma, hiatal hernia, arthritis, bursitis. PSHx of umbilical hernia repair, knee arthroscopy. No FHx of malignant hyperthermia, adverse reaction to anesthesia. Daily alcohol usage is reported, patient uses marijuana, he has never smoked tobacco. On triage, pain is rated 3/10, nothing is noted to aggravate/alleviate Sx, EMS established IV and controlled bleeding. Home medication and allergies are reviewed. - History Of Current Complaint Chief Complaint: EDSyncope Time Seen by Provider: 02/28/19 21:43 Hx Obtained From: Patient Onset/Duration: Still Present Timing: Hours Context: Witnessed Activity At Onset: Other - patient was getting finger bandaged Associated Head Trauma: No Aggravating Factor(s): Nothing Alleviating Factor(s): Nothing Associated Signs And Symptoms: Other - syncope, finger lac, no memory of episode , finger pain - Allergies/Home Medications Allergies/Adverse Reactions: Allergies Allergy/AdvReac Type Severity Reaction Status Date / Time lisinopril Allergy Coughing Verified 02/28/19 21:33 prednisone Allergy Agitation Verified 02/28/19 21:33 Sulfa (Sulfonamide Allergy Rash Verified 02/28/19 21:33 Antibiotics) PMH/Surg Hx/FS Hx/Imm Hx Endocrine/Hematology History: Denies: Hx Diabetes, Hx Thyroid Disease Cardiovascular History: Reports: Hx Hypertension - on meds Denies: Hx Pacemaker/ICD Respiratory History: Reports: Hx Asthma - possibily exercise induced Denies: Hx Chronic Obstructive Pulmonary Disease (COPD) GI History: Reports: Hx Hiatal Hernia Denies: Hx Ulcer History: Denies: Hx Renal Disease Musculoskeletal History: Reports: Hx Arthritis - LEFT KNEE - IMPROVED, Hx Bursitis - LEFT ELBOW JOINT Sensory History: Denies: Hx Contacts or Glasses, Hx Hearing Aid Opthamlomology History: Denies: Hx Contacts or Glasses Psychiatric History: Denies: Hx Panic Disorder - Surgical History Surgery Procedure, Year, and Place: umbilical hernia repair. knee arthroscopy Infectious Disease History: No Infectious Disease History: Reports: Hx Shingles Denies: Hx Hepatitis, Hx Human Immunodeficiency Virus (HIV), History Other Infectious Disease, Traveled Outside the [place] in Last 30 Days - Family History Known Family History: Positive: Other - no FHx of malignant hyperthermia, adverse reaction to anesthesia - Social History Alcohol Use: Daily Alcohol Amount: 2-3 drinks Substance Use Type: Reports: Marijuana Substance Use Comment - Amount & Last Used: daily Smoking Status (MU): Never Smoked Tobacco Review of Systems Musculoskeletal: Other - POSITIVE - LEFT MIDDLE FINGER PAIN Skin: Other - POSITIVE - LEFT MIDDLE FINGER LACERATION Neurological: Other - POSITIVE - NO MEMORY OF INCIDENT Positive: Syncope All Other Systems Reviewed And Are Negative: Yes Physical Exam - Summary Physical Exam Summary: VITAL SIGNS: Reviewed. GENERAL: Patient is a well-developed and nourished male who is lying comfortable in the stretcher. Patient is not in any acute respiratory distress. HEAD AND FACE: No signs of trauma. No ecchymosis, hematomas or skull depressions. No sinus tenderness. EYES: PERRLA, EOMI x 2, No injected conjunctiva, no nystagmus. EARS: Hearing grossly intact. Ear canals and tympanic membranes are within normal limits. MOUTH: Oropharynx within normal limits. NECK: Supple, trachea is midline, no adenopathy, no JVD, no carotid bruit, no c- spine tenderness, neck with full ROM CHEST: Symmetric, no tenderness at palpation LUNGS: Clear to auscultation bilaterally. No wheezing or crackles. CVS: Regular rate and rhythm, S1 and S2 present, no murmurs or gallops appreciated. ABDOMEN: Soft, non-tender. No signs of distention. No rebound no guarding, and no masses palpated. Bowel sounds are normal. EXTREMITIES: FROM in all major joints, no edema, no cyanosis or clubbing. NEURO: Alert and oriented x 3. No acute neurological deficits. Speech is normal and follows commands. SKIN: Dry and warm; left middle finger has 4 cm laceration that is vertical over palmar surface. Triage Information Reviewed: Yes Vital Signs On Initial Exam: Initial Vitals Temp Pulse Resp BP Pulse Ox 97.9 F 84 16 166/91 97 02/28/19 21:29 02/28/19 21:29 02/28/19 21:29 02/28/19 21:29 02/28/19 21:29 Vital Signs Reviewed: Yes Procedures - Procedure Summary Procedure Summary: Patient has a 4 cm vertical laceration at the palmar surface of the left middle finger. Digital block, lido 2% without epi was used. Three Nylon 5.0 stitches were applied, single layer with closure was done. - Laceration/Wound Repair 1 Location: Other - left middle finger Description: Linear Anesthesia: Digital, 2.0%, Lido Length, Depth and Shape: 5 cm lac, vertical over palmar surface of left middle finger. Laceration/Wound Explored: clean Closure: Single Layer Suture Type: Nylon - 5..0 Number of Sutures: 3 Layer Closure?: Yes Sterile Dressing Applied?: Yes Diagnostics - Vital Signs Vital Signs Temp Pulse Resp BP Pulse Ox 02/28/19 21:29 97.9 F 84 16 166/91 97 - Laboratory Lab Statement: Any lab studies that have been ordered have been reviewed, and results considered in the medical decision making process. - EKG 2258 Cardiac Rate: NL - rate of 73 BPM EKG Rhythm: Sinus Rhythm Summary of EKG Findings: EKG showed sinus rhythm with rate of 73 BPM, normal axis, normal interval, no iscehmic changes. Re-Evaluation - Re-Evaluation First Eval Re-Evaluation Time: 22:54 Change: Improved Comment: Finger has been stitched. Patient has a normal EKG and states that he feels at his baseline. Syncope is most likely vasovagal, patient will be discharge to home and follow up with PCP in ten days for stitches removal. He is agreeable with this. Course/Dx Course Of Treatment: Patient is a 58 y/o M presenting to ED via EMS after experiencing a finger laceration and subsequent syncopal episode. He states that he was taking out his trash tonight when he accidentally cut his left middle finger on a piece of ceramic dish that was in the trash. Patient was having this finger bandaged by his neighbor, began to feel "woozy" and experienced a witnessed syncopal episode. Patient states that he was "apparently " unresponsive for around two minutes and states that he does not recall the incident. At present, the patient is A&Ox3. However, the patient notes some alcohol consumption tonight and pain at lacerated finger. Patient denies Hx of similar Sx. PMHx of HTN for which the patient is on BP meds. He believes his last tetanus was within the last ten years. Patient has a 4 cm vertical laceration at the palmar surface of the left middle finger. Digital block, lido 2% without epi was used. Three Nylon 5.0 stitches were applied, single layer with closure was done. EKG showed sinus rhythm with rate of 73 BPM, normal axis , normal interval, no iscehmic changes. Patient has a normal EKG and states that he feels at his baseline. Syncope is most likely vasovagal, patient will be discharge to home and follow up with PCP in ten days for stitches removal. He is agreeable with this. - Diagnoses Provider Diagnoses: Vasovagal syncope, Laceration of left middle finger Discharge - Sign-Out/Discharge Documenting (check all that apply): Patient Departure - discharge Patient Received Moderate/Deep Sedation with Procedure: No - Discharge Plan Condition: Stable Disposition: HOME Patient Education Materials: Syncope (ED), Finger Laceration (ED) Referrals: Edgardo Cuadra MD [Primary Care Provider] - 03/10/19 Additional Instructions: PLEASE RETURN TO THE ED IMMEDIATELY FOR WORSENING OR CONCERNING SYMPTOMS. STITCHES OUT IN TEN DAYS. - Attestation Statements Document Initiated by Scribe: Yes Documenting Scribe: CRISTOPHER GALVAN Provider For Whom Scribe is Documenting (Include Credential): STEFANIE RICHARDSON MD Scribe Attestation: CRISTOPHER Nelson, scribed for STEFANIE RICHARDSON MD on 02/28/19 at 2338. Status of Scribe Document: Ready
[2019-02-28 23:18] VITALS: BP 138/90
== END | disposition home or self-care (01) ==
LOC: ED 21:21
DX: S61.213A Laceration without foreign body of left middle finger without damage to nail, initial encounter (principal); W26.9XXA Contact with unspecified sharp object(s), initial encounter; Y93.E9 Activity, other interior property and clothing maintenance; R55 Syncope and collapse; R94.31 Abnormal electrocardiogram [ECG] [EKG]; I10 Essential (primary) hypertension; J45.909 Unspecified asthma, uncomplicated; Z88.8 Allergy status to other drugs, medicaments and biological substances; Z88.2 Allergy status to sulfonamides; Z79.899 Other long term (current) drug therapy
CPT/HCPCS: 12002; 93005; 99282

== ENCOUNTER 2019-10-22 21:08 | Emergency (ER) | payer BC ==
--- NOTE | 2019-10-22 21:36 | ED ---
Abdominal Pain/Male - HPI Summary HPI Summary: Pt is a 58 y/o M presenting to the ED with a chief complaint of abd pain initially onset this morning when he woke up. He states he wasnt feeling great this morning, but he did not do anything abnormal last night or this morning. He states he feels his body is generally off, hes had episodes of belching and diarrhea, and hes frequently woken up with R upper arm numbness that develops into R finger aching. The abd pain is described as cramping. He also reports decreased appetite and drinking increased amounts of water. He denies nausea, vomiting, and fever. He has experienced these sx before during a panic attack. Pt is daily drinker, has not had EtOH today. - History of Current Complaint Chief Complaint: EDAbdPain Stated Complaint: ABD PAIN PER PT Time Seen by Provider: 10/22/19 21:18 Hx Obtained From: Patient Onset/Duration: Sudden Onset, Lasting Hours, Still Present Timing: Intermittent, Lasting Hours Severity Initially: Mild Severity Currently: Mild Pain Intensity: 1 Pain Scale Used: 0-10 Numeric Location: Diffuse Radiates: No Character: Cramping Aggravating Factor(s): Nothing Alleviating Factor(s): Nothing Associated Signs And Symptoms: Positive: Decreased Appetite, Other - belching, numbness in R upper arm, shaking. Negative: Fever, Nausea, Vomiting - Allergies/Home Medications Allergies/Adverse Reactions: Allergies Allergy/AdvReac Type Severity Reaction Status Date / Time lisinopril Allergy Coughing Verified 10/22/19 21:10 prednisone Allergy Agitation Verified 10/22/19 21:10 Sulfa (Sulfonamide Allergy Rash Verified 10/22/19 21:10 Antibiotics) Home Medications: Home Medications Ascorbic Acid [Vitamin C] 1,000 mg PO DAILY 10/22/19 [History Confirmed 10/22/19 ] PMH/Surg Hx/FS Hx/Imm Hx Previously Healthy: Yes Endocrine/Hematology History: Denies: Hx Diabetes, Hx Thyroid Disease Cardiovascular History: Reports: Hx Hypercholesterolemia, Hx Hypertension - on meds Denies: Hx Myocardial Infarction, Hx Pacemaker/ICD Respiratory History: Reports: Hx Asthma - possibily exercise induced Denies: Hx Chronic Obstructive Pulmonary Disease (COPD) GI History: Reports: Hx Hiatal Hernia Denies: Hx Ulcer History: Denies: Hx Renal Disease Musculoskeletal History: Reports: Hx Arthritis - LEFT KNEE - IMPROVED, Hx Bursitis - LEFT ELBOW JOINT Sensory History: Denies: Hx Contacts or Glasses, Hx Hearing Aid Opthamlomology History: Denies: Hx Contacts or Glasses Psychiatric History: Denies: Hx Panic Disorder - Surgical History Surgery Procedure, Year, and Place: umbilical hernia repair. knee arthroscopy Infectious Disease History: No Infectious Disease History: Reports: Hx Shingles Denies: Hx Hepatitis, Hx Human Immunodeficiency Virus (HIV), History Other Infectious Disease, Traveled Outside the [place] in Last 30 Days - Family History Known Family History: Positive: Cardiac Disease - father [place] at 79, Other - no FHx of malignant hyperthermia, adverse reaction to anesthesia - Social History Alcohol Use: Daily Alcohol Amount: 2-3 drinks Hx Substance Use: Yes Substance Use Type: Reports: Marijuana Substance Use Comment - Amount & Last Used: daily Hx Tobacco Use: No Smoking Status (MU): Never Smoked Tobacco Review of Systems - ROS Summary Review of Systems Summary: Home Medications Medication Instructions Recorded Confirmed Type Hydrochlorothiazide TAB* 12.5 mg PO DAILY 08/19/13 10/22/19 History [Hydrodiuril TAB*] Losartan TAB* [Cozaar TAB*] 100 mg PO DAILY 05/31/17 10/22/19 History Rosuvastatin (NF) [Crestor (NF)] 5 mg PO DAILY 05/31/17 10/22/19 History Ascorbic Acid [Vitamin C] 1,000 mg PO DAILY 10/22/19 10/22/19 History Positive: Other - decreased appetite. Negative: Fever Positive: Abdominal Pain, Diarrhea, Other - belching. Negative: Vomiting, Nausea Positive: Myalgia, Other - shaking Positive: Numbness All Other Systems Reviewed And Are Negative: Yes Physical Exam - Summary Physical Exam Summary: General: Obese, Well-nourished male. Mildly anxious appearing HEENT: Normocephalic, Atraumatic. Eyes: Conjuctiva normal, PERRL. Oropharynx: Clear, mucous membranes moist, (-) exudates. Neck: Soft, FROM, (-) lymphadenopathy, (-) thyromegaly, (-) JVD. Cardiovascular: Normal sinus rhythm, (-) murmur. Lungs: Clear to auscultation bilaterally (-) wheezes, (-) rales, (-) rhonchi. Abdomen: Soft, non-tender, non-distended, (-) organomegaly, normal bowel sounds. Back: (-) CVA tenderness Extremities: No edema. Skin: Warm, dry, (-) rash. Neuro: Alert and oriented x3, no focal deficits. Psychiatric: Mood normal, affect mildly anxious. Triage Information Reviewed: Yes Vital Signs On Initial Exam: Initial Vitals Temp Pulse Resp BP Pulse Ox 98.5 F 103 18 186/105 99 10/22/19 21:09 10/22/19 21:09 10/22/19 21:09 10/22/19 21:09 10/22/19 21:09 Vital Signs Reviewed: Yes Procedures - Sedation Patient Received Moderate/Deep Sedation with Procedure: No Diagnostics - Vital Signs Vital Signs Temp Pulse Resp BP Pulse Ox 10/22/19 21:09 98.5 F 103 18 186/105 99 - Laboratory Result Diagrams: 10/22/19 21:49 10/22/19 21:49 Lab Statement: Any lab studies that have been ordered have been reviewed, and results considered in the medical decision making process. - Radiology CXR Radiology Interpretation Completed By: ED Physician Summary of Radiographic Findings: No infiltrate. No pleural effusion. Pending official radiology report. - EKG 2148 Cardiac Rate: NL - 85bpm EKG Rhythm: Sinus Rhythm ST Segment: Normal Ectopy: None Summary of EKG Findings: EKG at 2148 reveals normal sinus rhythm with rate of 85 BPM, no acute changes, no ischemic changes. This EKG was reviewed and interpreted by Dr. Davenport. Re-Evaluation - Re-Evaluation 1st re-eval Re-Evaluation Time: 00:13 Change: Improved Comment: I have discussed results with the patient and abd pain is resolved. Discussed symptoms that warrant immediate return to ED. Abdominal Pain Male Course/Dx - Course Course Of Treatment: 58 year old male arrives from home with abdominal cramping and vague uneasy feelings. he admits to feeling somewhat anxious. he admits to drinking daily, but none today. physical and workup essentially negative, although non diagnostic. In the ED course, the pt was given 15mg Toradol, 4mg Zofran, and 40mg Protonix. I also gave 40meq of Potassium Chloride. His blood pressure was high prior to discharge, so I gave 25mg Hydrochlorothiazide. strongly advised follow up with PCP and decrease alcohol intake. - Diagnoses Provider Diagnoses: Diarrhea, Anxiety Discharge ED - Sign-Out/Discharge Documenting (check all that apply): Patient Departure - Discharge Plan Condition: Stable Disposition: HOME Patient Education Materials: Acute Diarrhea (ED) Referrals: Edgardo Cuadra MD [Primary Care Provider] - Additional Instructions: Please follow up with your primary care physician within three days. Please return to ED for any new or worsening symptoms. - Billing Disposition and Condition Condition: STABLE Disposition: Home - Attestation Statements Document Initiated by Scribe: Yes Documenting Scribe: Estelita Thomas Provider For Whom Brentonibe is Documenting (Include Credential): Daniela Davenport MD. Scribe Attestation: Estelita Nelson, scribed for Daniela Davenport MD. on 10/23/19 at 0214. Scribe Documentation Reviewed: Yes Provider Attestation: The documentation as recorded by the brentonibeEstelita accurately reflects the service I personally performed and the decisions made by me, Daniela Davenport MD. Status of Scribe Document: Viewed
[2019-10-22] MEDS ORDERED: Pantoprazole IV* 40 MG IV ONE (21:39)
[2019-10-22] MEDS ORDERED: Ketorolac INJ* 30 MG/ML 1 ML VIAL IV PUSH ONE (21:39)
[2019-10-22] MEDS ORDERED: Ondansetron INJ* 2 MG/ML VIAL IV ONE (21:40)
[2019-10-22 21:57] LABS: ABS Eosinophils 0.1 10^3/ul (0-0.6); ABS Lymphocytes 1.2 10^3/ul (1.0-4.8); ABS Monocytes 0.9 10^3/ul (0-0.8); ABS Neutrophils 7.4 10^3/ul (1.5-7.7); Eosinophil % 0.9 %; Hematocrit 36 % (42-52); Hemoglobin 12.4 g/dL (14.0-18.0); Lymphocyte % 12.3 %; Mean Corpuscular HGB Conc 34 g/dL (31-36); Mean Corpuscular Hemoglobin 31 pg (27-31); Mean Corpuscular Volume 89 fL (80-94); Mean Platelet Volume 6.9 fL (7.4-10.4); Platelet Count 250 10^3/uL (150-450); Red Blood Count 4.07 10^6 /uL (4.18-5.48); Red Cell Distribution Width 13 % (10-15); White Blood Count 9.6 10^3/uL (3.5-10.8)
[2019-10-22 22:02] LABS: INR 0.91 (0.82-1.09)
[2019-10-22 22:19] LABS: ALT 21 U/L (7-52); AST 20 U/L (13-39); Albumin 4.6 g/dL (3.2-5.2); Albumin/Globulin Ratio 2.2 (1-3); Alkaline Phosphatase 48 U/L (34-104); Anion Gap 9 mmol/L (2-11); BUN/Creatinine Ratio 28.6 (8-20); Blood Urea Nitrogen 26 mg/dL (6-24); CO2 Carbon Dioxide 25 mmol/L (22-32); Calcium 9.2 mg/dL (8.6-10.3); Chloride 96 mmol/L (101-111); EGFR African American 103.9 (>60); EGFR Non-African American 85.9 (>60); Globulin 2.1 g/dL (2-4); Glucose 114 mg/dL (70-100); Magnesium 1.8 mg/dL (1.9-2.7); Potassium 3.1 mmol/L (3.5-5.0); Sodium 130 mmol/L (135-145); Total Protein 6.7 g/dL (6.4-8.9)
[2019-10-22 22:21] LABS: Troponin I 0.01 ng/mL (<0.03)
[2019-10-22] MEDS ORDERED: Potassium Chlor TAB* 20 MEQ TAB.ER PO ONE (22:25)
[2019-10-22 22:53] LABS: Alcohol < 10 mg/dL (<10)
[2019-10-22 23:07] LABS: TSH (Thyroid Stimulating Horm) 2.92 mcIU/mL (0.34-5.60)
[2019-10-22 23:28] LABS: Urine Appearance Clear; Urine Bilirubin Negative (Negative); Urine Blood Negative (Negative); Urine Color Straw; Urine Glucose Negative (Negative); Urine Ketones Negative (Negative); Urine Nitrite Negative (Negative); Urine Protein Negative (Negative); Urine Specific Gravity 1.005 (1.010-1.030); Urine Urobilinogen Negative (Negative)
[2019-10-22 23:56] LABS: Urine Benzodiazepine Screen None Detected (None Detect); Urine Opiates Screen None Detected (None Detect)
[2019-10-23] MEDS ORDERED: Hydrochlorothiazide TAB* 25 MG PO ONE (00:34)
[2019-10-23 00:48] VITALS: BP 175/103
== END 2019-10-23 00:40 | disposition home or self-care (01) ==
LOC: ED 21:08
DX: R10.9 Unspecified abdominal pain (principal); R19.7 Diarrhea, unspecified; F41.9 Anxiety disorder, unspecified; R94.31 Abnormal electrocardiogram [ECG] [EKG]; Z79.899 Other long term (current) drug therapy
CPT/HCPCS: 36415; 71045; 80053; 80307; 80320; 81003; 83605; 83735; 83880; 84443; 84484; 85025; 85610; 86140; 93005; 96374; 96375; 99283; A9270-GY; G0480; J1885; J2405

== ENCOUNTER 2020-10-29 08:29 | Observation (INO) ==
[~2020-10-29 08:29] MED LIST changes: +Buffered Lidocaine 1% SYRIN 1 ml INTRADERM ONE; +Famotidine IV 10 MG/ML 2 ml VIAL (20 mg) IV ONE; +Lactated Ringers 1000 ml BAG 1,000 ML IV SCH; -Lidocaine 2% MPF* 2 ML VIAL ONE; +Sodium Citrate/Citric Acid LIQ 15 ML UDC PO ONE
[2020-10-29] MEDS ORDERED: Sodium Citrate/Citric Acid LIQ 15 ML UDC ONE (09:11)
[2020-10-29] MEDS ORDERED: ceFAZolin 2 GM PREMIX 2 GM/50 ML BAG ONE (09:11)
[2020-10-29] MEDS ORDERED: Famotidine IV 10 MG/ML 2 ml VIAL (20 mg) ONE (09:11)
[2020-10-29] MEDS ORDERED: Midazolam 2 mg/2 ml VIAL 1 mg/ml 2 ml VIAL (2 mg) ONE ×2 (09:26→11:29)
[2020-10-29] MEDS ORDERED: Glycopyrrolate IV 0.2 MG/ML 1 ML VIAL ONE (09:26)
[2020-10-29] MEDS ORDERED: fentaNYL 100 mcg/2 ml 50 MCG/ML VIAL ONE (09:26)
[2020-10-29] MEDS ORDERED: Phenylephrine IV 10 MG/ML 1 ml VIAL ONE (09:33)
[2020-10-29] MEDS ORDERED: Bupivacaine 0.5% SDV PF 30ML VIAL ONE (10:38)
[2020-10-29] MEDS ORDERED: Propofol 10 MG/ML 20 ML BTL ONE (11:24)
[2020-10-29] MEDS ORDERED: Propofol 10 mg/ml 100 ML BTL 100 ML ONE (11:24)
[2020-10-29] MEDS ORDERED: Naloxone 0.4 mg VIAL 0.4 mg/ml 1 ml VIAL IV PRN (12:32)
[2020-10-29] MEDS ORDERED: HYDROmorphone 1 MG/1 ML SYRINGE IV PRN (12:32)
[2020-10-29] MEDS ORDERED: fentaNYL 100 mcg/2 ml 50 MCG/ML VIAL IV PRN (12:32)
[2020-10-29] MEDS ORDERED: Ondansetron 4 mg VIAL 2 MG/ML 2 ml VIAL IV PRN ×2 (12:32→13:17)
[2020-10-29] MEDS ORDERED: Magnesium Hydroxide LIQ 30 ML UDC PO PRN (13:17)
[2020-10-29] MEDS ORDERED: diPHENhydraMINE IV 50 MG/ML 1 ml VIAL (BENADRYL) IV PRN (13:17)
[2020-10-29] MEDS ORDERED: diPHENhydraMINE 25 mg TAB PO PRN (13:17)
[2020-10-29] MEDS ORDERED: Ondansetron ODT 4 mg TAB 4 MG TAB PO PRN (13:17)
[2020-10-29] MEDS ORDERED: Morphine 2 MG/ML SYRINGE IV PRN (13:17)
[2020-10-29] MEDS ORDERED: Lactulose 30 ml UDC PO PRN (13:17)
[2020-10-29] MEDS ORDERED: Lactated Ringers 1000 ml BAG 1,000 ML IV SCH (14:00)
[2020-10-29] MEDS: oxyCODONE/Acetamin 5/325 mg TAB PO PRN ×2 (16:58→21:00)
[2020-10-29] MEDS: Magnesium Hydroxide LIQ 30 ML UDC PO SCH (21:00)
[2020-10-29] MEDS: ceFAZolin 1 GM ADVAN 1 GM in NS 0.9% 50 ML 50 ML IVPB SCH (21:00)
[2020-10-30] MEDS: oxyCODONE/Acetamin 5/325 mg TAB PO PRN ×3 (02:25→12:49)
[2020-10-30] MEDS: ceFAZolin 1 GM ADVAN 1 GM in NS 0.9% 50 ML 50 ML IVPB SCH ×2 (03:51→11:39)
[2020-10-30 06:13] LABS: BUN/Creatinine Ratio 13.1 (8-20); Calcium 7.9 mg/dL (8.6-10.3); EGFR African American 113.6 (>60); EGFR Non-African American 93.9 (>60); Potassium 3.3 mmol/L (3.5-5.0)
[2020-10-30 06:31] LABS: Hematocrit 31 % (42-52); Hemoglobin 10.3 g/dL (14.0-18.0); Mean Platelet Volume 7.3 fL (7.4-10.4); Platelet Count 246 10^3/uL (150-450)
[2020-10-30] MEDS: Magnesium Hydroxide LIQ 30 ML UDC PO SCH (08:53)
[2020-10-30] MEDS ORDERED: Potassium Chlor 20 meq TAB.ER PO SCH (09:00)
[2020-10-30] MEDS ORDERED: KCL 20 MEQ/100 ML IVPREMIX 20 MEQ/100 ML BAG IV SCH (09:00)
[2020-10-30] MEDS ORDERED: Vitamin THERAPEUTIC TAB PO SCH (09:00)
[2020-10-30 09:13] LABS: Magnesium 1.7 mg/dL (1.9-2.7)
[2020-10-30 12:37] VITALS: BP 142/96
== END 2020-10-30 14:09 | disposition home or self-care (01) ==
LOC: INTOOBSV 08:29 → AA 08:29 → SSU 15:55
PROVIDERS: ADMIT Orthopaedic Surgery Adult Reconstructive Orthopaedic Surgery; ATTEND Orthopaedic Surgery Adult Reconstructive Orthopaedic Surgery